=== PATIENT | female | born 2005 | race Caucasian/White ===

== ENCOUNTER 2025-05-06 12:56 | Emergency (ER) | payer BC ==
[~2025-05-06 12:56] MED LIST: Iopamidol 370 76% 100 ML VIAL ONE
[2025-05-06 15:33] LABS: Cocaine Metabolite Screen Negative (Negative); THC/Cannabinoid Screen Negative (Negative); Tricyclic Screen Negative (Negative)
[2025-05-06 16:02] LABS: #Basophils 0.06 10x3/uL (0.0-0.2); #Eosinophils 0.07 10x3/uL (0.0-0.5); #Monocytes 0.42 10x3/uL (0.0-1.1); #Neutrophils 3.33 10x3/uL (1.5-8.4); %Basophils 0.9 % (0.0-2.0); %Eosinophils 1.0 % (0.0-6.0); %Lymphocytes 44.5 % (18.0-47.0); %Monocytes 6.0 % (0.0-10.0); %Neutrophils 47.2 % (40.0-75.0); Hematocrit 41.9 % (34.9-44.5); Hemoglobin 13.3 g/dL (12.0-15.5); Mean Corpuscular Hemoglobin 28.0 pg (27.0-33.0); Mean Corpuscular Volume 88.2 fL (81.6-98.3); Platelet Count 238 10x3/uL (150-450); Red Blood Cell (RBC) Count 4.75 10x6/uL (3.90-5.03); White Blood Cell (WBC) Count 7.04 10x3/uL (3.5-10.5)
[2025-05-06 16:22] LABS: Acetaminophen Less than 10 mcg/mL (Less than 10); Salicylate Less than 8.0 mg/dL (Less than 8.0)
[2025-05-06 16:23] LABS: ALT (SGPT) 15 U/L (Less than 34); AST (SGOT) 20 U/L (11-34); Albumin 4.8 g/dL (3.1-4.5); Alkaline Phosphatase 70 U/L (40-100); Anion Gap 10 mmol/L (10-20); BUN (Urea Nitrogen) 16 mg/dL (7.0-18.7); Bilirubin, Total 0.6 mg/dL (0.3-1.2); Calc. Creatinine Clearance 0 mL/min (70-130); Calcium 9.5 mg/dL (7.8-10.44); Carbon Dioxide 24 mmol/L (22-29); Chloride 107 mmol/L (98-107); Globulin 3.1 g/dL (2.4-3.5); Glucose 86 mg/dL (70-105); Potassium 4.0 mmol/L (3.5-5.1); Sodium 137 mmol/L (136-145)
[2025-05-06 16:31] LABS: BHCG - Serum Negative (NEGATIVE); Pregs Control Background? CLEAR/WHITE (CLR/WHITE); Pregs Control Bar Appear? YES (CONTROL BAR)
[2025-05-06 16:45] LABS: INR-International Normal Ratio 1.0; PTT 26.5 sec (22.0-33.0); Prothrombin Time 11.1 sec (9.5-12.1)
== END 2025-05-06 18:27 | disposition home or self-care (01) ==
LOC: CSHERS 12:56
DX: H57.02 Anisocoria (principal); R29.700 NIHSS score 0
CPT/HCPCS: 70496; 70498; 80053; 80306; 80307; 84703; 85025; 85610; 85730; Q9967